=== PATIENT | male | born 1985 | race Caucasian/White ===

== ENCOUNTER 2020-11-23 10:59 | Observation (INO) | payer BC, SELFPAY ==
[2020-11-23] VITALS (14 sets, daily range): BP systolic 105–130; BP diastolic 71–110; PULSE 86–132; RESP 16–23; TEMP 35.8–37.3; O2SAT 96–100; BMI 36.2
--- NOTE | ~2020-11-23 | MR_ITS ---
EXAMINATION: MR brain/brain stem wo/w con EXAM DATE: 11/24/2020 08:32 INDICATION: Seizure-like activity. Syncope. TECHNIQUE: Magnetic resonance imaging (MRI) of the brain/brain stem obtained without contrast. Sagit keith T1, axial diffusion, gradient echo (T2*), T1, T2, FLAIR sequences obtained. Seizure protocol was utilized including high-resolution coronal images through the hippocampi. Patient was then injecte d with 20 cc intravenous Multihance contrast. Axial and coronal postcontrast T1 weighted sequences ob tained. Correlation is made to head CT from yesterday. FINDINGS: The hippocampi are symmetric and are without signal abnormality identified. There are no g ray matter heterotopias identified or evidence of cortical dysplasia. There are no areas of restric sonya diffusion to suggest acute infarction. There is no acute hemorrhage seen on the T2*, a hemosider in sensitive sequence. No intraparenchymal brain mass. The ventricles are normal in size. There are no extra-axial collections. Flow voids are seen in the cerebral arteries on the T2-weighted sequenc es consistent with their expected patency. The orbits are unremarkable. Soft tissue is unremarkable . There are no areas of abnormal enhancement on the postcontrast images. IMPRESSION: 1. Normal brain MRI examination. Reviewed, dictated and finalized at location D. G TECHNICIAN
--- NOTE | ~2020-11-23 | CT_ITS ---
EXAMINATION: CT brain wo con EXAM DATE: 11/23/2020 12:45 INDICATION: Syncope, possible seizure. TECHNIQUE: Spiral CT of the head was performed without contrast. Axial, coronal and sagittal images were reviewed. The dose-length product (DLP) for this examination was 605.33 mGy-cm. The exposure w as tailored according to patient size, and iterative reconstruction (ASIR) was used as additional dos e reduction technique. There is no prior study for comparison. FINDINGS: There is no acute intraparenchymal hemorrhage. No evidence of intraparenchymal brain mass lesion. No evidence of acute infarction. There is no mass effect or midline shift. The ventricles are normal in size. There are no extra-axial collections. There are no acute calvarial fractures. T he orbits are unremarkable. Soft tissue is unremarkable. The visualized sinuses and mastoid air binta ls are well aerated. IMPRESSION: 1. No acute intracranial findings. Reviewed, dictated and finalized at location B. IC HEALTH PROFESSOR
--- NOTE | 2020-11-23 11:07 | ECG_ITS ---
Measurements Intervals [place] Rate: 96 P: 66 [place]: 148 QRS: 31 QRSD: 73 T: 38 QT: 327 QTc: 415 Interpretive Statements SINUS RHYTHM BASELINE ARTIFACT- I, II, III, AVR, AVL, AVF NORMAL ECG Electronically Signed On 11-23-2020 11:49:16 [employer]AREHOUSE [employer]AD by Edilson Leblanc D.O.
[2020-11-23 11:25] LABS: Basophils Percent Auto 0.6 % (0.2-1.2); Eosinophils Percent Auto 0.4 % (0-4.4); Hematocrit 49.3 % (42.0-52.0); Hemoglobin 16.4 g/dL (14.0-18.0); Immature Granulocyte Absolute 0.03 K/mm3 (0.00-0.031); Immature Granulocyte Percent A 0.4 % (0-0.5); Lymphocytes Absolute Auto 0.87 K/mm3 (0.9-3.2); Lymphocytes Percent Auto 12.9 % (18.3-44.2); Mean Corpuscular HGB Conc 33.3 g/dl (32-36); Mean Corpuscular Hemoglobin 28.3 pg (26-34); Mean Corpuscular Volume 85.1 fl (80-100); Mean Platelet Volume 10.5 fl (7.4-10.4); Monocytes Absolute Auto 0.6 K/mm3 (0.1-0.6); Monocytes Percent Auto 8.5 % (2.6-8.5); Neutrophils Absolute Auto 5.2 K/mm3 (1.3-6.7); Neutrophils Percent Auto 77.2 % (45.5-73.1); Platelet Count Result 165 k/mm3 (150-375); Red Blood Count 5.79 M/mm3 (4.6-6.20); Red Cell Distribution Width 13.2 % (11.5-14.5); White Blood Count 6.7 K/mm3 (4.5-10.0)
[2020-11-23 11:35] LABS: Anion Gap 8 mmol/L (8-16); Blood Urea Nitrogen 13 mg/dL (9-20); Calcium 9.1 mg/dL (8.4-10.2); Carbon Dioxide 28 mmol/L (22-30); Chloride 103 mmol/L (98-107); Estimated CRCL calculation 90 ml/min; Estimated Glomerular Filt Rate 58; Glucose 155 mg/dL (75-110); Potassium 4.5 mmol/L (3.4-5.0); Sodium 139 mmol/L (137-145)
--- NOTE | 2020-11-23 12:04 | ED.SYNCOPE ---
HPI - Syncope General Chief Complaint: Syncope Stated Complaint: Syncopal Episode Time Seen by Provider: 11/23/20 12:04 Source: patient, family and EMS Mode of arrival: EMS Limitations: no limitations History of Present Illness HPI narrative: Patient 35 years old white male brought to the emergency room by ambulance with a chief complaint of syncope, possible seizure. Patient reports feeling cold, clammy and dizzy for about 10 minutes then woke up on the floor. Bystander reports seizure-like activities, and urine incontinence. Patient reported having similar symptoms in 2004 with urinary incontinence. Patient is telling me that he never been diagnosed of seizure or never been on antiseizure medication before. He reports also a lot of stress lately. Currently patient feeling okay denying any symptoms. Related Data Allergies Allergy/AdvReac Type Severity Reaction Status Date / Time azithromycin Allergy Verified 10/10/12 23:36 Review of Systems Review of Systems: Narrative: CONSTITUTIONAL: Denies fever, chills, or sweats. EYES: Denies visual changes, redness, or discharge. ENT: Denies rhinorrhea, congestion, sore throat, or otalgia. CARDIOVASCULAR: Denies chest pain, palpitations, or edema. RESPIRATORY: Denies cough or dyspnea. GASTROINTESTINAL: Denies abdominal pain, nausea, vomiting, or diarrhea. GENITOURINARY: Denies dysuria or hematuria. SKIN: Denies rash or itching. MUSCULOSKELETAL: Denies back pain, joint pain, or myalgia. NEUROLOGIC: Denies headache, numbness, or weakness. PSYCHIATRIC: Denies anxiety or depression. [facility] Social History Social History Smoking status: Never smoker Alcohol intake: never Exam Narrative: Exam Narrative: General appearance: Well-developed, well-nourished Skin: Normal color Head: Normocephalic, nontraumatic Eyes: Clear conjunctiva ENT: Oropharynx normal, ears normal, nose normal Neck: Supple, nontender Chest and respiratory: Airway patent, no respiratory distress, no accessory muscle use Heart: Regular rate/rhythm Abdomen: Soft, nontender, no organomegaly, quiet bowel sounds Vascular: Normal peripheral pulses, normal capillary refill. Musculoskeletal: Normal range of motion, nontender back Neurologic: Alert and oriented ?3, GUN NUMBERER is normal as tested, no gross motor deficit Course Course Emergency Course: Stable Vital Signs Vital signs: Vital Signs Temperature 35.8 C L 11/23/20 11:03 Pulse Rate 97 11/23/20 11:03 Respiratory Rate 18 11/23/20 11:03 Blood Pressure 120/80 11/23/20 11:03 Pulse Oximetry 100 11/23/20 11:03 Temperature 35.8 C L 11/23/20 11:03 Pulse Rate 97 11/23/20 11:03 Respiratory Rate 18 11/23/20 11:03 Blood Pressure 120/80 11/23/20 11:03 Pulse Oximetry 100 11/23/20 11:03 MDM - Syncope MDM Narrative Medical decision making narrative: Syncope versus seizure. Labs, CT head, UA, orthostatic blood pressure ordered Differential Diagnosis Differential diagnosis: Likely syncope due to orthostatic hypotension, vasovagal syncope and dehydration Lab Data Result diagrams: 11/23/20 11:15 11/23/20 11:15 Labs: Lab Results 11/23/20 11/23/20 Range/Units 11:15 11:15 WBC 6.7 (4.5-10.0) K/mm3 RBC 5.79 (4.6-6.20) M/mm3 Hgb 16.4 (14.0-18.0) g/dL Hct 49.3 (42.0-52.0) % MCV 85.1 (80-100) fl MCH 28.3 (26-34) pg MCHC 33.3 (32-36) g/dl RDW 13.2 (11.5-14.5) % Plt Count 165 (150-375) k/mm3 MPV 10.5 H (7.4-10.4) fl Immature Gran % (Auto) 0.4 (0-0.5) % Neut % (Auto) 77.2 H (45.5-73.1) % Lymph % (Auto) 12.9 L (18.3-44.2) % [place] % (Aut
--- NOTE | 2020-11-23 16:00 | ADMGEN ---
This patient, Ric Rodriguez, was admitted to Medical Room 249-01. Patient/family oriented to hospital policies and general routines including ID bracelet, bed and alarms, visiting hours, pain management, procedures, bathroom and other care routines, personal items, smoking policy, room service/diet, and visiting hours. Information on how to activate the Rapid Response Team has been discussed. Patient/Family are encouraged to report perceived risks to care and to ask questions if they do not understand what they are told or what they should do.
--- NOTE | 2020-11-23 20:08 | ECG_ITS ---
Measurements Intervals [place] Rate: 123 P: 36 [place]: 132 QRS: 26 QRSD: 88 T: 7 QT: 298 QTc: 427 Interpretive Statements SINUS TACHYCARDIA NONSPECIFIC T-WAVE ABNORMALITY- INFERIOR LEADS BASELINE ARTIFACT- I, II, III, AVR, V1, V3, V6 ABNORMAL ECG Electronically Signed On 11-24-2020 7:07:27 [employer]ACETRACK STEWARD by Edilson Leblanc D.O.
--- NOTE | 2020-11-23 22:00 | PM.IMHP ---
H&P: HPI History of Present Illness Date/Time: 11/23/20 22:00 Chief Complaint: Syncope. Narrative: This is a previously healthy 35-year-old male presented to the emergency department earlier today via EMS for evaluation of what sounds like a syncopal episode. He was in his usual state of health when he woke this morning and not long prior to arrival while sitting in a work truck, he began to feel cold, clammy, and dizzy. The symptoms made him anxious as he apparently had similar symptoms in the past with a syncopal episode many years ago, and the next thing he knows he is waking up with his coworkers standing next to him. Reportedly he lost consciousness for a little less than 30 seconds, and coworkers noticed that he was incontinent of urine and seemed to be ?snoring? during this episode. Bystanders are not sure if he was having seizure activity however they did notice that his wrists were contracted and stiff. As mentioned he had a similar episode many years ago, but he has never been diagnosed with seizures. 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 This has caused him quite a bit of stress recently. He does not take supplements and denies alcohol and illicit substance use. He has not taken any medications recently. He denies chest pain, pleuritic pain, palpitations, shortness of breath, and lower extremity edema. He has no known history of cardiac disease or cardiac dysrhythmia. No history of pulmonary embolism or history to support such. Review of Systems Review of Systems: Narrative: Twelve systems were reviewed with pertinent positives and negatives as per HPI. He had a headache post syncopal episode but that has since improved with Tylenol. No known exposure to COVID-19. He denies sick contacts. He has had a tickle in his throat for the past couple of hours and has had a dry cough because of that. No fever, chills, or sweats. He denies racing heart but he has been tachycardic into the 120s when up and walking. He thinks he may be dehydrated as he has been very busy these last 3 days and has not had much to drink. No change in urine output or dark colored urine. Except as documented, all other systems were reviewed and are negative. [facility] Past Medical History Medical History (Updated 11/23/20 @ 23:42 by Charo Balderrama PA-C) No significant medical problems Surgical History Surgical History (Updated 11/23/20 @ 23:40 by Charo Balderrama PA-C) History of appendectomy Family History Family History (Updated 11/23/20 @ 23:40 by Charo Balderrama PA-C) Father Vaso vagal episode Hypertension Social History Social History (Updated 11/23/20 @ 23:41 by Charo Balderrama PA-C) Social History: Surrogate decision maker: Valdemar and Paula Michael, parents. Code status: Full code. Smoking status: Never smoker Alcohol intake: never Substance use: never Additional living arrangements comments: Lives in [place] with his girlfriend. Additional occupation/education comments: Works for [employer]. Also volunteers for [place] [employer]. Gender identity (if verbalized by the patient): Male Sexual Orientation (if Verbalized by the Patient): Straight or Heterosexual Spiritual care concerns: No Meds Home Medications and Allergies Home Medications Medication Instructions Recorded Confirmed Type No Home Medications 11/23/20 11/23/20 History Allergies Allergy/AdvReac Type Severity Reaction Status Date / Time azithromycin Allergy Mild Rash Verified 11/23/20 16:49 Vital Signs Vital Signs - 24 hr 11/23/20 11:03 11/23/20 12:00 11/23/20 13:00 Temperature 96.4 F L Pulse Rate 97 99 101 H Respiratory Rate 18 20 20 Blood Pressure 120/80 119/81 130/89 Pulse Oximetry 10
[2020-11-23 23:14] LABS: Hemoglobin A1C 5.4 % (<5.7)
[2020-11-23 23:40] LABS: Alanine Aminotransferase 30 U/L (4-50); Albumin Level 4.2 g/dL (3.5-5.1); Alkaline Phosphatase 68 U/L (38-126); Anion Gap 6 mmol/L (8-16); Aspartate Amino Transferase 29 U/L (17-59); Bilirubin,Total 0.6 mg/dL (0.2-1.3); Blood Urea Nitrogen 14 mg/dL (9-20); Calcium 8.8 mg/dL (8.4-10.2); Carbon Dioxide 28 mmol/L (22-30); Chloride 102 mmol/L (98-107); Creatine Kinase 62 U/L (55-170); Estimated CRCL calculation 100 ml/min; Estimated Glomerular Filt Rate > 60; Glucose 114 mg/dL (75-110); Potassium 4.3 mmol/L (3.4-5.0); Sodium 136 mmol/L (137-145)
[2020-11-24] VITALS (9 sets, daily range): BP systolic 120–133; BP diastolic 60–95; PULSE 90–111; RESP 14–20; TEMP 36.8–37; O2SAT 98–100
[2020-11-24] MEDS: SODIUM CHLORIDE 0.9% IV 1,000 ML 150 ML IV CONT (00:45)
[2020-11-24 06:01] LABS: Anion Gap 7 mmol/L (8-16); Blood Urea Nitrogen 12 mg/dL (9-20); Calcium 8.5 mg/dL (8.4-10.2); Carbon Dioxide 26 mmol/L (22-30); Chloride 105 mmol/L (98-107); Estimated CRCL calculation 101 ml/min; Estimated Glomerular Filt Rate > 60; Glucose 101 mg/dL (75-110); Potassium 4.3 mmol/L (3.4-5.0); Sodium 138 mmol/L (137-145)
--- NOTE | 2020-11-24 11:35 | WPDNEURCNPN ---
Assessment and Plan Assessment and plan (1) Sinus tachycardia: Code(s): R00.0 - Tachycardia, unspecified Status: Acute (2) Elevated serum creatinine: Code(s): R79.89 - Other specified abnormal findings of blood chemistry Status: Acute (3) Syncope: Code(s): R55 - Syncope and collapse Status: Acute Additional Plan is stable to be discharged with instruction to follow in the office in 2 to 4 weeks and also not to drive for the next 2 weeks Consult date: 11/24/20 Time Seen: 11:00 HPI: Ric Rodriguez is a 35 year old male has been admitted to [facility] through the emergency room for the syncopal episode. Reportedly he was in his usual state of health when he woke up in the morning and while he was sitting in a work truck he felt cold clammy and dizzy. 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 He is not a smoker substance abuser or alcohol drinker and works for the [employer]. Initial evaluation documented normal CBC with hemoglobin 16.4, normal BMP with creatinine of 1.40 but repeat coming down to 1.3 initial glucose of 155 but repeat normal and hemoglobin A1c of 5.4. Initial CT scan negative for the bleed and MRI negative for any small stroke-like lesion. Echocardiogram is pending Review of Systems Review of Systems: All systems reviewed & are unremarkable except as noted in HPI and below [facility] Past Medical History Medical History No significant medical problems Surgical History Surgical History History of appendectomy Family History Family History Father Vaso vagal episode Hypertension Social History Social History Social History: Surrogate decision maker: Valdemar and Paula Rodriguez, parents. Code status: Full code. Smoking status: Never smoker Alcohol intake: never Substance use: never Additional living arrangements comments: Lives in [place] with his girlfriend. Additional occupation/education comments: Works for [employer]. Also volunteers for [place] [employer]. Gender identity (if verbalized by the patient): Male Sexual Orientation (if Verbalized by the Patient): Straight or Heterosexual Spiritual care concerns: No Meds Home Medications and Allergies Home Medications Medication Instructions Recorded Confirmed Type No Home Medications 11/23/20 11/23/20 History Allergies Allergy/AdvReac Type Severity Reaction Status Date / Time azithromycin Allergy Mild Rash Verified 11/23/20 16:49 Vital Signs Vital Signs - 24 hr 11/23/20 12:00 11/23/20 13:00 11/23/20 13:40 Temperature Pulse Rate 99 101 H 95 Respiratory Rate 20 20 Blood Pressure 119/81 130/89 110/78 Pulse Oximetry 98 98 11/23/20 13:42 11/23/20 13:43 11/23/20 13:46 Temperature Pulse Rate 102 H 132 H 102 H Respiratory Rate 23 H Blood Pressure 119/81 124/110 H 119/81 Pulse Oximetry 100 11/23/20 14:00 11/23/20 15:45 11/23/20 16:00 Temperature 37.3 C Pulse Rate 98 100 8
--- NOTE | 2020-11-24 12:41 | WPDNEUROLOGY ---
Neurology EEG Report General Information Date of Study: 11/24/20 TEST eeg DIAGNOSIS seizure-like activity CONDITION OF RECORDING awake drowsy and sleep EEG NUMBER 21-00 CLINICAL HISTORY patient reported he loss consciousness yesterday at work. No previous history of seizure or losing consciousness EEG DESCRIPTION basic resting occipital frequency consists of large amount of low voltage 9 to 11 hertz per 2nd alpha admixed with low-voltage 15 to 18 hertz per 2nd beta. During drowsiness low-voltage beta activity seen diffusely admixed with waxing and waning posterior alpha rhythm. Bilateral symmetrical sleep activity seen during sleep. Hyperventilation not done. Photic stimulation not done. Non paroxysmal. Nonfocal. Nonlateralizing. Intermittent EKG artifact is noted throughout the tracing IMPRESSION no significant abnormalities noted
--- NOTE | 2020-11-24 13:04 | WPDNEUROPN ---
Review of Systems Review of Systems: All systems reviewed & are unremarkable except as noted in HPI and below Objective Data Vital Signs Vital Signs: Vital Signs - 24 hr 11/23/20 13:40 11/23/20 13:42 11/23/20 13:43 Temperature Pulse Rate 95 102 H 132 H Respiratory Rate Blood Pressure 110/78 119/81 124/110 H Pulse Oximetry 11/23/20 13:46 11/23/20 14:00 11/23/20 15:45 Temperature Pulse Rate 102 H 98 100 Respiratory Rate 23 H 16 16 Blood Pressure 119/81 115/71 118/82 Pulse Oximetry 100 96 99 11/23/20 16:00 11/23/20 16:21 11/23/20 19:28 Temperature 37.3 C 36.6 C Pulse Rate 86 90 108 H Respiratory Rate 16 16 Blood Pressure 114/84 121/75 Pulse Oximetry 98 98 11/23/20 20:00 11/23/20 22:00 11/24/20 00:00 Temperature 36.4 C Pulse Rate 127 H 98 95 Respiratory Rate 18 Blood Pressure 105/75 Pulse Oximetry 99 11/24/20 04:00 11/24/20 05:25 11/24/20 10:35 Temperature 36.8 C Pulse Rate 90 103 H 95 Respiratory Rate 14 Blood Pressure 120/77 131/83 Pulse Oximetry 98 11/24/20 10:38 11/24/20 10:40 11/24/20 12:00 Temperature Pulse Rate 104 H 111 H 94 Respiratory Rate Blood Pressure 123/95 H 124/81 Pulse Oximetry Intake/Output Intake/Output: Intake & Output 11/21/20 11/22/20 11/23/20 11/24/20 23:59 23:59 23:59 23:59 Intake Total 690 1370 Output Total 325 Balance 365 1370 Meds/Results Medications: Active Medications Generic Name Dose Route Start Last Admin Trade Name Freq PRN Reason Stop Dose Admin Acetaminophen 650 mg 11/23/20 22:20 Acetaminophen 325 Mg Tablet PO Q6H PRN Mild Pain (1-3) or Fever Radiology Results: ITS Impressions Head CT 11/23/20 12:49 IMPRESSION: 1. No acute intracranial findings. Brain MRI 11/24/20 08:33 IMPRESSION: 1. Normal brain MRI examination. Labs Labs: Laboratory Results - last 24 hr 11/23/20 11/23/2021 22:58 22:58 22:58 Sodium 136 L Potassium 4.3 Chloride 102 Carbon Dioxide 28 Anion Gap 6 L BUN 14 Creatinine 1.30 Estim Creat Clear Calc 100 Estimated GFR > 60 Glucose 114 H Hemoglobin A1c 5.4 Calcium 8.8 Total Bilirubin 0.6 AST 29 ALT 30 Alkaline Phosphatase 68 Total Creatine Kinase 62 Total Protein 8.0 Albumin 4.2 TSH (Reflex) 1.640 11/24/20 05:05 Sodium 138 Potassium 4.3 Chloride 105 Carbon Dioxide 26 Anion Gap 7 L BUN 12 Creatinine 1.30 Estim Creat Clear Calc 101 Estimated GFR > 60 Glucose 101 Hemoglobin A1c Calcium 8.5 Total Bilirubin AST ALT Alkaline Phosphatase Total Creatine Kinase Total Protein Albumin TSH (Reflex) Quality VTE Prophylaxis VTE prophylaxis: mechanical ordered
--- NOTE | 2020-11-24 13:15 | WPDNEUROPN ---
Progress Note: A&P Assessment and Plan (1) Syncope: Code(s): R55 - Syncope and collapse Status: Acute (2) Sinus tachycardia: Code(s): R00.0 - Tachycardia, unspecified Status: Acute Additional Plan stable home with no medication and also instruction not to drive at least for 2 weeks would like to see him for the follow-up in the office in 4 to 6 weeks and call me if any problem Review of Systems Review of Systems: All systems reviewed & are unremarkable except as noted in HPI and below Exam Const: General: cooperative, healthy appearing, comfortable and no acute distress Nutritional Appearance: overweight Limitations: no limitations HENMT: Head: normocephalic Ears: hearing grossly normal bilaterally General nose exam: Normal external nose present and No nasal discharge present Eyes: General: appearance normal, both eyes and all related structures Alignment and Position: alignment normal Eyelids: eyelids normal Conjunctivae: conjunctivae normal Sclera: sclerae normal Cornea: corneas normal Pupils: Equal, round and reactive pupils present Neck: Neck: full ROM and no lymphadenopathy Resp: Effort & Inspection: normal respiratory effort Auscultation: clear to auscultation bilaterally Cardio: Jugular venous distension: no JVD Rate: regular rate Rhythm: regular rhythm GI: Auscultation: normal bowel sounds Skin: General skin exam: no rashes or lesions noted Neuro: General: patient oriented x3 and gait normal Cranial nerves: Yes CN's II-XII intact bilaterally Cognition (Neuro): normal cognition Speech: normal speech Motor exam (neuro): 5/5 motor strength present throughout Psych: Appearance: grossly normal Objective Data Vital Signs Vital Signs: Vital Signs - 24 hr 11/23/20 13:40 11/23/20 13:42 11/23/20 13:43 Temperature Pulse Rate 95 102 H 132 H Respiratory Rate Blood Pressure 110/78 119/81 124/110 H Pulse Oximetry 11/23/20 13:46 11/23/20 14:00 11/23/20 15:45 Temperature Pulse Rate 102 H 98 100 Respiratory Rate 23 H 16 16 Blood Pressure 119/81 115/71 118/82 Pulse Oximetry 100 96 99 11/23/20 16:00 11/23/20 16:21 11/23/20 19:28 Temperature 37.3 C 36.6 C Pulse Rate 86 90 108 H Respiratory Rate 16 16 Blood Pressure 114/84 121/75 Pulse Oximetry 98 98 02/04/21 20:00 11/23/20 22:00 11/24/20 00:00 Temperature 36.4 C Pulse Rate 127 H 98 95 Respiratory Rate 18 Blood Pressure 105/75 Pulse Oximetry 99 11/24/20 04:00 11/24/20 05:25 11/24/20 10:35 Temperature 36.8 C Pulse Rate 90 103 H 95 Respiratory Rate 14 Blood Pressure 120/77 131/83 Pulse Oximetry 98 11/24/20 10:38 11/24/20 10:40 11/24/20 12:00 Temperature Pulse Rate 104 H 111 H 94 Respiratory Rate Blood Pressure 123/95 H 124/81 Pulse Oximetry Intake/Output Intake/Output: Intake & Output 11/21/20 11/22/20 11/23/20 11/24/20 23:59 23:59 23:59 23:59 Intake Total 690 1370 Output Total 325 Balance 365 1370 Meds/Results Medications: Active Medications Generic Name Dose Route Start Last Admin Trade Name Freq PRN Reason Stop Dose Admin Acetaminophen 650 mg 11/23/20 22:20 Acetaminophen 325 Mg Tablet PO Q6H PRN Mild Pain (1-3) or Fever Radiology Results: ITS Impressions Head CT 11/23/20 12:49 IMPRESSION: 1. No acute intracranial findings. Brain MRI 11/24/20 08:33 IMPRESSION: 1. Normal brain MRI examination. Labs Labs: Laboratory Results - last 24 hr 11/23/20 11/23/20 11/23/20 22:58 22:58 22:58 Sodium 136 L Potassium 4.3 Chloride 102 Carbon Dioxide 28 Anion Gap 6 L BUN 14 Creatinine 1.30 Estim Creat Clear Calc 100 Estimated GFR > 60 Glucose 114 H Hemoglobin A1c 5.4 Calcium 8.8 Total Bilirubin 0.6 AST 29 ALT 30 Alkaline Phosphatase 68 Total Creatine Kinase 62 Total Protein 8.0 Albumin 4.2 TSH (Reflex) 1.640
[2020-11-24] MEDS: SODIUM CHLORIDE 0.9% IV 1,000 ML 999 ML IV CONT (13:59)
[2020-11-24] MEDS: ACETAMINOPHEN 325 MG TABLET 650 MG PO (14:05)
--- NOTE | 2020-11-24 16:03 | PM.DS ---
DS: Admitting Diagnosis Admitting Diagnosis Admitting Diagnosis: (1) Syncope: (2) Elevated serum creatinine: (3) Sinus tachycardia: DS: Discharge Diagnosis Discharge Diagnosis (1) Sinus tachycardia: Code(s): R00.0 - Tachycardia, unspecified Status: Acute (2) Elevated serum creatinine: Code(s): R79.89 - Other specified abnormal findings of blood chemistry Status: Acute (3) Syncope: Code(s): R55 - Syncope and collapse Status: Acute DS: Summary Hospital Course Reason for hospitalization: Syncope Hospital Course: This is a 35-year-old male with non significant PMHx presented to the emergency department earlier today via EMS for evaluation of what sounds like a syncopal episode. He was in his usual state of health when he woke up in the morning and not long prior to arrival while sitting in a work truck, he began to feel cold, clammy, and dizzy. The symptoms made him anxious as he apparently had similar symptoms in the past with a syncopal episode many years ago, and the next thing he knows he is waking up with his coworkers standing next to him. Reportedly he lost consciousness for a little less than 30 seconds, and coworkers noticed that he was incontinent of urine and seemed to be ?snoring? during this episode. Bystanders are not sure if he was having seizure activity however they did notice that his wrists were contracted and stiff. As mentioned he had a similar episode many years ago, but he has never been diagnosed with seizures. 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 This has caused him quite a bit of stress recently. He does not take supplements and denies alcohol and illicit substance use. He has not taken any medications recently. He did not have any chest pain, pleuritic pain, palpitations, shortness of breath, and lower extremity edema. He had no known history of cardiac disease or cardiac dysrhythmia. He had extensive work up for syncope which was low yielding. was ruled in that he had narcolepsy from sleep deprivation after a good night rest he was back to his usual. He was discharged home and will follow up with his PCP in the outpatient setting. No consults were requested Time Spent with Patient Time attestation: Total time spent providing and/or coordinating discharge services: Exam Const: General: cooperative, healthy appearing, comfortable, no acute distress, well developed, alert, awake and Physically active Nutritional Appearance: average body habitus Orientation/consciousness: patient oriented x3 HENMT: Head: normal to inspection and atraumatic Ears: hearing grossly normal bilaterally General nose exam: Normal external nose present Face and sinus: normal facial exam Mouth: Yes Normal oral and palatal mucosa present Eyes: General: appearance normal, both eyes and all related structures Pupils: Equal, round and reactive pupils present EOM: EOMs intact bilaterally Neck: Neck: no lymphadenopathy and no JVD Resp: Effort & Inspection: normal respiratory effort Auscultation: clear to auscultation bilaterally Cardio: Jugular venous distension: no JVD Rate: regular rate Rhythm: regular rhythm GI: GI Palp: Yes Firmness to palpation present (GI) and Yes Hepatosplenomegaly present Skin: Rashes: no rashes Neuro: General: patient oriented x3 and CN's II-XI intact bilaterally Cranial nerves: Yes CN's II-XII intact bilaterally Cognition (Neuro): normal cognition Motor exam (neuro): 5/5 motor strength present throughout Extrem: General: no pedal edema DS: Data Data Completed and Pending Labs on day of discharge: Labs from last 24 hours 11/24/20 11/23/20 11/23/20 05:05 22:58 22:58 Sodium 138 Potassium 4.3 Chloride 105 Carbon Dioxide 26 Anion Gap 7
--- NOTE | 2020-11-24 22:21 | ECHO_ITS ---
Patient Info Name: Ric Rodriguez Age: 35 years : 1985 Gender: Male Ht: 73 in Wt: 274 lbs BSA: 2.57 m2 BP: 120 / 77 mmHg Heart Rhythm: Sinus Rhythm Technical Quality: Good Exam Date: 11/24/2020 9:12 AM Exam Location: [facility] Patient Status: Inpatient Admit Date: 11/23/2020 Staff Ordering Physician: Charo Balderrama PA-C [place] Operator: David Del Castillo, GLEN, RT Attending Provider: Gary Awad MD Referring Physician: Tacos WALLS; Exam Type: CA echo doppler color flow Study Info Indications I47.1 - Supraventricular tachycardia R55 - Syncope and collapse Strain analysis performed. Complete two-dimensional, color flow and Doppler transthoracic echocardiogram is performed with contrast to opacify the left ventricle and to improve the deliniation of the left ventricle endocardial borders. Summary 1. Technically difficult study. 2. Left ventricular systolic function is lower limits of normal, estimated at 50-55%. 3. Left ventricular chamber dimension is normal. 4. There is no increased left ventricular wall thickness. 5. The left ventricular diastolic function is normal. 6. There is no aortic valve stenosis. 7. There is trace tricuspid valve regurgitation. 8. Unable to estimate PA systolic pressure due to poor spectral resolution of tricuspid regurgitant jet velocity. 9. Normal inferior vena cava with <50% collapse upon inspiration consistent with elevated right atrial pressure, 10 mmHg. Left Ventricle Left ventricular chamber dimension is normal. Left ventricular systolic function is lower limits of normal, estimated at 50-55%. There is no increased left ventricular wall thickness. The left ventricular diastolic function is normal. Global longitudinal strain is mildly elevated at -15 %. Technically difficult study. Right Ventricle Right ventricular chamber dimension is normal. Right ventricular systolic function is normal. Left Atria Left atrial chamber dimension is normal. Right Atria Right atrial chamber dimension is normal. Aortic Valve The aortic valve is probable trileaflet. There is no aortic valve stenosis. There is no aortic valve regurgitation. Pulmonic Valve The pulmonic valve is not well visualized. Mitral Valve The mitral valve has normal leaflets. There is no mitral valve regurgitation. Tricuspid Valve The tricuspid valve leaflets are normal. There is trace tricuspid valve regurgitation. Unable to estimate PA systolic pressure due to poor spectral resolution of tricuspid regurgitant jet velocity. Pericardium/Pleural The pericardium appears normal. There is no pericardial effusion. Inferior Vena Cava Normal inferior vena cava with <50% collapse upon inspiration consistent with elevated right atrial pressure, 10 mmHg. Aorta The aortic root size at the sinus of Valsalva is normal. Left Ventricular Outflow Tract Name Value Normal LVOT 2D LVOT Diameter 2.1 cm LVOT Doppler LVOT Peak Gradient 3 mmHg LVOT Mean Gradient 1 mmHg LVOT VTI 13 cm
== END 2020-11-24 17:36 | disposition home or self-care (01) ==
LOC: ANHED 13:27 → ANH2MED 16:23
PROVIDERS: Physician Assistant; Admitting Provider Internal Medicine; Emergency Provider Emergency Medicine; PCP Family Medicine; Visit Provider Internal Medicine
DX: R55 Syncope and collapse (principal); R94.31 Abnormal electrocardiogram [ECG] [EKG]; R79.89 Other specified abnormal findings of blood chemistry; R00.0 Tachycardia, unspecified
CPT/HCPCS: 36415; 70450; 70553; 80048; 80053; 82550; 83036; 84443; 85025; 93005; 93306; 95816; 96361; 96374; 99285; A9270; A9577; G0378; J0131; J7030; Q9957

== ENCOUNTER 2022-03-29 09:25 | Outpatient (CLI) | payer BC, SELFPAY ==
--- NOTE | ~2022-03-29 | XR_ITS ---
EXAMINATION: XR UGIAC w kub DATE: 03/29/2022 10:04 INDICATION: Gastroesophageal reflux disease without esophagitis. TECHNIQUE: An anteroposterior view of the abdomen was obtained. The patient drank thick barium, gas-p roducing crystals, and thin barium. Fluoroscopy of the esophagus, stomach, and proximal small bowel w as performed. Fluoroscopy exposure time was 0.5 minutes. The total number of images was 253. COMPARISON: CT abdomen and pelvis 10/10/2012 FINDINGS: There is no mass or stricture of the esophagus. Esophageal motility is normal. There is no hiatal hernia. There was no gastroesophageal reflux with provocative maneuvers. The stomach and proxi mal small bowel show normal folding patterns. IMPRESSION: 1. Normal upper gastrointestinal series. Reviewed, dictated and finalized at location A.
== END 2022-03-29 09:26 | disposition home or self-care (01) ==
PROVIDERS: PCP Emergency Medicine; Visit Provider Emergency Medicine
DX: K21.9 Gastro-esophageal reflux disease without esophagitis (principal)
CPT/HCPCS: 74246

== ENCOUNTER 2025-01-10 09:58 | Outpatient (CLI) | payer BC, SELFPAY ==
--- NOTE | ~2025-01-10 | XR_ITS ---
3 VIEWS LUMBAR SPINE Ordering provider: Deon Rahman History: . low back pain . Comparison: None. FINDINGS: VERTEBRAL BODIES: No visible fracture or subluxation. DISK SPACES: Normal. SOFT TISSUES: Normal. IMPRESSION: No acute osseous abnormality lumbar spine. Reviewed, dictated and finalized at location A.
== END 2025-01-10 09:59 | disposition home or self-care (01) ==
PROVIDERS: PCP Emergency Medicine
DX: M54.50 Low back pain, unspecified (principal)
CPT/HCPCS: 72100